=== PATIENT | female | born 1960 ===

== ENCOUNTER 2017-10-16 13:29 | Emergency (ER) | payer OTHER ==
[2017-10-16 13:39] VITALS: BP 111/70; PULSE 70; RESP 18; TEMP 97.7; O2SAT 96
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
--- NOTE | 2017-10-16 14:26 | RAD ---
PROCEDURE: Cervical Spine Radiographs. HISTORY: Pain. COMPARISON: None. FINDINGS: BONES: Alignment maintained. No fracture. Dens Intact. DISC SPACES: Multilevel disc space narrowing. SOFT TISSUES: Normal. No prevertebral soft tissue swelling. OTHER FINDINGS: None. IMPRESSION: No acute fracture. Multilevel degenerative changes
== END 2017-10-16 18:08 | disposition home or self-care (01) ==
LOC: H.ER 13:29
DX: M54.2 Cervicalgia (principal); V43.12XA Car passenger injured in collision with other type car in nontraffic accident, initial encounter; Y92.410 Unspecified street and highway as the place of occurrence of the external cause